=== PATIENT | male | born 1995 | race Caucasian/White ===

== ENCOUNTER 2017-03-06 19:24 | Emergency (ER) | payer SELFPAY ==
[2017-03-06] MEDS ORDERED: Diphtheria,Pertussis(Acell),Tetanus Vaccine 0.5 ML Syringe IM ONE (19:35)
[2017-03-06] MEDS ORDERED: Bupivacaine 0.5% 10 ML SDV ONE (19:51)
--- NOTE | 2017-03-06 20:02 | EDM.PDOC ---
ED HPI GENERAL MEDICAL PROBLEM - General Chief Complaint: Lower Extremity Injury/Pain Stated Complaint: CRUSHED TOES AT WORK Time Seen by Provider: 03/06/17 19:39 - History of Present Illness INITIAL COMMENTS - FREE TEXT/NARRATIVE: HISTORY AND PHYSICAL: History of present illness: Patient 21-year-old white male presents with concern of acute injury to his right foot informal blunt force trauma with he dropped a transmission on his foot sustaining a avulsion injury to the fourth digit and a lesser injury to the fifth digit his tetanus status is to be determined as no other trauma or concern Review of systems: As per history of present illness and below otherwise all systems reviewed and negative. Past medical history: As per history of present illness and as reviewed below otherwise noncontributory. Surgical history: As per history of present illness and as reviewed below otherwise noncontributory. Social history: No reported history of drug or alcohol abuse. Family history: As per history of present illness and as reviewed below otherwise noncontributory. Physical exam: HEENT: Atraumatic, normocephalic, pupils reactive, negative for conjunctival pallor or scleral icterus, mucous membranes moist, throat clear, neck supple, nontender, trachea midline. Lungs: Clear to auscultation, breath sounds equal bilaterally, chest nontender. Heart: S1S2, regular, negative for clicks, rubs, or JVD. Abdomen: Soft, nondistended, nontender. Negative for masses or hepatosplenomegaly. Negative for costovertebral tenderness. Pelvis: Stable nontender. Genitourinary: Deferred. Rectal: Deferred. Extremities: Patient noted to have abrasion and avulsion injury of the fourth and fifth digits the abrasions primarily the fifth digit the fourth digit has loss of nail with tissue avulsion and a small laceration approximately 1 cm on the medial aspect seen best neurovascular exam somewhat limited but grossly unremarkable. Neuro: Awake, alert, oriented. Cranial nerves II through XII unremarkable. Cerebellum unremarkable. Motor and sensory unremarkable throughout. Exam nonfocal. Diagnostics: X-ray right foot Therapeutics: Patient was anesthetized with 0.5% Marcaine irrigated with copious amounts 0.9 normal saline his 1 cm laceration was closed with 50 absorbable suture bulky dressing was applied Impression: [#1 acute injury right foot (blunt force trauma with laceration/abrasion/ avulsion) Definitive disposition and diagnosis as appropriate pending reevaluation and review of above. Right Feet Pain Score (Numeric/FACES): 10 - Related Data Allergies Allergy/AdvReac Type Severity Reaction Status Date / Time No Known Allergies Allergy Verified 03/06/17 19:30 Home Meds: Home Meds . [No Known Home Meds] 03/06/17 [History] Review of Systems - Review of Systems Review Of Systems: ROS reveals no pertinent complaints other than HPI. ED EXAM, GENERAL - Physical Exam Exam: See Below (See dictation) Course - Vital Signs Last Recorded V/S: Last Vital Signs Temp 36.8 C 03/06/17 19:36 Pulse 106 H 03/06/17 19:36 Resp 30 H 03/06/17 19:36 BP 146/94 H 03/06/17 19:36 Pulse Ox 100 03/06/17 19:36 - Orders/Labs/Meds Orders: Active Orders 24 hr Category Date Time Status Vaccines to be Administered [RC] PER UNIT ROUTINE Care 03/06/17 19:35 Active Foot Comp Min 3V Rt [CR] Stat Exams 03/06/17 19:30 Taken Meds: Medications Discontinued Medications Generic Name Dose Route Start Last Admin Trade Name Freq PRN Reason Stop Dose Admin Bacitracin 1 dose 03/06/17 20:54 Bacitracin Oint 1 Gm TOP 03/06/17 20:55 ONETIME ONE Bupivacaine HCl Confirm 03/06/17 19:51 03/06/17 20:12 Sensorcaine-Mpf 0.5% Administered 03/06/17 19:52 10 ml Dose Administration 10 ml .ROUTE .STK-MED ONE Diphtheria/Tetanus/Acell Pertussis 0.5 ml 03/06/17 19:35 03/06/17 20:11 Adacel IM 03/06/17 19:36 0.5 ml .ONCE ONE Administration Departure - Departure Time of Disposition: 20:02 Disposition: Home, Self-Care 01 Condition: Good Clinical Impression: Foot injury - Discharge Information Referrals: PCP,None [Primary Care Provider] - Forms: ED Department Discharge Additional Instructions: The following information is given to patients seen in the emergency department who are being discharged to home. This information is to outline your options for follow-up care. We provide all patients seen in our emergency department with a follow-up referral. The need for follow-up, as well as the timing and circumstances, are variable depending upon the specifics of your emergency department visit. If you don't have a primary care physician on staff, we will provide you with a referral. We always advise you to contact your personal physician following an emergency department visit to inform them of the circumstance of the visit and for follow-up with them and/or the need for any referrals to a consulting specialist. The emergency department will also refer you to a specialist when appropriate. This referral assures that you have the opportunity for followup care with a specialist. All of these measure are taken in an effort to provide you with optimal care, which includes your followup. Under all circumstances we always encourage you to contact your private physician who remains a resource for coordinating your care. When calling for followup care, please make the office aware that this follow-up is from your recent emergency room visit. If for any reason you are refused follow-up, please contact the [facility] emergency department at and asked to speak to the emergency department charge nurse. Dr TERAN Hydrocodone Keflex as prescribed follow-up podiatry as referred wound check 24- 48 hours return as needed as discussed - My Orders Last 24 Hours: My Active Orders 03/06/17 19:35 Vaccines to be Administered [RC] PER UNIT ROUTINE - Assessment/Plan Last 24 Hours: My Active Orders 03/06/17 19:35 Vaccines to be Administered [RC] PER UNIT ROUTINE
[2017-03-06] MEDS ORDERED: Bacitracin Oint 1 GM U/D Packet TOP ONE (20:54)
[2017-03-07 00:51] VITALS: BP 134/84
--- NOTE | 2017-03-07 13:36 | CR ---
EXAM DATE: 03/06/17 PATIENT'S AGE: 21 Patient: SHIV DELORES Facility: [place], [place] Site . Site : 1995 Study: XRay Extremity Right FOOT [id number] 8:41:02 PM Ordering Physician: Doctor Peterson Final Report: HISTORY: Crush injury right foot. Technique: Right foot 3 views. Comparison: None. Findings: Comminuted mildly displaced fracture of the tuft of the 4th toe distal phalanx. Comminuted intra-articular fracture of the 5th toe distal phalanx with disruption of the articular surface. No other acute fracture. Joint spaces are otherwise maintained. Chronic linear lucency in the lateral aspect of the 3rd toe distal phalanx. No radiopaque foreign body. Impression: Comminuted fractures of the distal phalanges of the 4th and 5th toes. Dictated by Shiv Coburn MD @ Mar 06 2017 9:03PM (Electronic Signature) Report Signed by Proxy. JOSE
== END 2017-03-06 21:15 | disposition home or self-care (01) ==
LOC: MW.ED 19:24
DX: S91.214A Laceration without foreign body of right lesser toe(s) with damage to nail, initial encounter (principal); S90.414A Abrasion, right lesser toe(s), initial encounter; W20.8XXA Other cause of strike by thrown, projected or falling object, initial encounter; Y99.0 Civilian activity done for income or pay; Z23 Encounter for immunization
CPT/HCPCS: 12001; 73630-26-RT; 73630-RT; 90471; 90715; 99282; 99283-25

== ENCOUNTER 2017-03-08 22:34 | Emergency (ER) | payer SELFPAY ==
[2017-03-08] MEDS ORDERED: Bacitracin Oint 1 GM U/D Packet TOP ONE (23:18)
[2017-03-08] MEDS ORDERED: Sulfamethoxazole/Trimethoprim 800-160 MG Tab PO ONE (23:20)
--- NOTE | 2017-03-08 23:20 | EDM.PDOC ---
ED HPI GENERAL MEDICAL PROBLEM - General Chief Complaint: Wound Recheck Stated Complaint: STITCHES FELL OF RT TOE Time Seen by Provider: 03/08/17 23:05 Source of Information: Reports: Patient, Family, Old Records, RN - History of Present Illness INITIAL COMMENTS - FREE TEXT/NARRATIVE: He is here for a wound recheck. He suffered a crush injury to tips of toes 4 and 5 right foot two days ago. Right Feet Pain Score (Numeric/FACES): 4 - Related Data Allergies Allergy/AdvReac Type Severity Reaction Status Date / Time No Known Allergies Allergy Verified 03/08/17 22:51 Home Meds: Home Meds Cephalexin [Keflex] 500 mg PO QID 03/08/17 [History] Hydrocodone/Acetaminophen [Hydrocodon-Acetaminophen 5-325] 1 tab PO TID PRN [History] Past Medical History - Past Health History Medical/Surgical History: Denies Medical/Surgical History HEENT History: Reports: Impaired Vision - Past Surgical History Musculoskeletal Surgical History: Reports: Other (See Below) Other Musculoskeletal Surgeries/Procedures:: arm surgery Social & Family History - Family History Family Medical History: Noncontributory - Tobacco Use Smoking Status *Q: Current Every Day Smoker Years of Tobacco use: 9 Packs/Tins Daily: 1 - Caffeine Use Caffeine Use: Reports: Coffee, Energy Drinks, Soda - Recreational Drug Use Recreational Drug Use: Yes Drug Use in Last 12 Months: Yes Recreational Drug Type: Reports: Marijuana/Hashish Recreational Drug Use Frequency: Daily ED ROS GENERAL - Review of Systems Review Of Systems: See Below (no other complaint; he has been trying to walk and go to work.) ED EXAM, SKIN/RASH Exam: See Below Text/Narrative:: alert marked swelling and abraded areas of toes 4 and 5 right foot. Xrays reviewed. tips of toes warm and pink Course - Vital Signs Last Recorded V/S: Last Vital Signs Temp 98.5 F 03/08/17 22:47 Pulse 84 03/08/17 22:47 Resp 20 03/08/17 22:47 BP 122/69 03/08/17 22:47 Pulse Ox 100 03/08/17 22:47 Departure - Departure Time of Disposition: 23:16 Disposition: Home, Self-Care 01 Condition: Fair Clinical Impression: Foot injury - Discharge Information Referrals: PCP,None [Primary Care Provider] - Additional Instructions: I emphasized my recommendation for podiatry follow up particularly with intraarticular fracture noted. I advised that I am worried about future malignment and chronic toe pain. I advised that I am not certain that the distal fifth toes is lined up properly. He states that he will not see podiatry. crutches minimal partial weight bearing for balance add bactrim DS bid x 7 days stop bactrim and see a doctor if rash, sores in eyes, mouth or genitals develop
[2017-03-08 23:57] VITALS: BP 131/86
== END 2017-03-08 23:45 | disposition home or self-care (01) ==
LOC: MW.ED 22:34
DX: S97.121D Crushing injury of right lesser toe(s), subsequent encounter (principal); I10 Essential (primary) hypertension; F17.210 Nicotine dependence, cigarettes, uncomplicated; X58.XXXD Exposure to other specified factors, subsequent encounter; Z98.890 Other specified postprocedural states
CPT/HCPCS: 99283; A9270; 99281

== ENCOUNTER 2018-02-08 19:39 | Emergency (ER) | payer SELFPAY ==
[2018-02-08] MEDS ORDERED: Benzocaine 20% Topical Spray UD MUCMEM ONE (19:54)
[2018-02-08] MEDS ORDERED: Lidocaine 2% Viscous Solution 15 ML Cup PO ONE (19:54)
--- NOTE | 2018-02-08 19:57 | EDM.PDOC ---
ED HPI GENERAL MEDICAL PROBLEM - General Chief Complaint: ENT Problem Stated Complaint: RT SIDE JAW BLEEDING Time Seen by Provider: 02/08/18 19:50 Source of Information: Reports: Patient History Limitations: Reports: No Limitations - History of Present Illness INITIAL COMMENTS - FREE TEXT/NARRATIVE: HISTORY AND PHYSICAL: History of present illness: Patient is a 22-year-old male here with complaint of bleeding in his mouth for the last week. The bleeding has slowed down but he'll occasionally spit out a little bit of blood. He stated having a lot of pain on the right side of his mouth and is rating to his right ear. He denies any fevers or chills Review of systems: As per history of present illness and below otherwise all systems reviewed and negative. Past medical history: As per history of present illness and as reviewed below otherwise noncontributory. Surgical history: As per history of present illness and as reviewed below otherwise noncontributory. Social history: No reported history of drug or alcohol abuse. Family history: As per history of present illness and as reviewed below otherwise noncontributory. Physical exam: General: Patient sitting comfortably in no acute distress and nontoxic appearing HEENT: Patient has some erosion of the 2nd left lower molar. The surrounding gums are erythematous. There is a cut on the adjacent cheek that appears to have been bleeding. Atraumatic, normocephalic, pupils reactive, negative for conjunctival pallor or scleral icterus, mucous membranes moist, throat clear, neck supple, nontender, trachea midline. No meningeal signs. Lungs: Clear to auscultation, breath sounds equal bilaterally, chest nontender. Heart: S1S2, regular, negative for clicks, rubs, or overt murmur. Abdomen: Soft, nondistended, nontender. Negative for masses or hepatosplenomegaly. Negative for costovertebral tenderness. Pelvis: Stable nontender. Genitourinary: Deferred. Rectal: Deferred. Extremities: Atraumatic, negative for cords or calf pain. Neurovascular unremarkable. Neuro: Awake, alert, oriented. Cranial nerves II through XII unremarkable. Cerebellum unremarkable. Motor and sensory unremarkable throughout. Exam nonfocal. Notes: Diagnostics: None Therapeutics: Dental balls Prescriptions: Penicillin Impression: Dental infection Plan: 1. Take antibiotic and is dental balls as directed. Alternate Tylenol or Motrin as needed for pain. 2. Follow-up with dentist for definitive treatment 3. Return to ED as needed as discussed Definitive disposition and diagnosis as appropriate pending reevaluation and review of above. mouth Pain Score (Numeric/FACES): 8 - Related Data Allergies Allergy/AdvReac Type Severity Reaction Status Date / Time No Known Allergies Allergy Verified 02/08/18 19:46 Home Meds: Home Meds Penicillin V Potassium [Veetids] 500 mg PO TID #30 tab 02/08/18 [Rx] Past Medical History - Past Health History Medical/Surgical History: Denies Medical/Surgical History HEENT History: Reports: Impaired Vision Musculoskeletal History: Reports: Other (See Below) Other Musculoskeletal History: dislocated left arm - Past Surgical History Musculoskeletal Surgical History: Reports: None Social & Family History - Family History Family Medical History: Noncontributory - Tobacco Use Smoking Status *Q: Current Every Day Smoker Years of Tobacco use: 5 Packs/Tins Daily: 0.1 - Caffeine Use Caffeine Use: Reports: Coffee, Energy Drinks, Soda - Recreational Drug Use Recreational Drug Use: Yes Recreational Drug Type: Reports: Marijuana/Hashish Recreational Drug Last Use: "4 months ago" ED ROS ENT - Review of Systems Review Of Systems: ROS reveals no pertinent complaints other than HPI. ED EXAM, ENT - Physical Exam Exam: See Below (See dictation) Course - Vital Signs Last Recorded V/S: Last Vital Signs Temp 36.6 C 02/08/18 19:43 Pulse 90 02/08/18 19:43 Resp 18 02/08/18 19:43 BP 114/70 02/08/18 19:43 Pulse Ox 99 02/08/18 19:43 - Orders/Labs/Meds Meds: Medications Discontinued Medications Generic Name Dose Route Start Last Admin Trade Name Freq PRN Reason Stop Dose Admin Benzocaine 2 each 02/08/18 19:54 02/08/18 20:00 Hurricaine One 20% MUCMEM 02/08/18 19:55 2 each ONETIME ONE Administration Lidocaine HCl 15 ml 02/08/18 19:54 02/08/18 20:00 Xylocaine 2% Viscous PO 02/08/18 19:55 15 ml ONETIME ONE Administration Departure - Departure Time of Disposition: 20:03 Disposition: Home, Self-Care 01 Condition: Good Clinical Impression: Dental infection, Abrasion of buccal mucosa - Discharge Information Prescriptions: Penicillin V Potassium [Veetids] 500 mg PO TID #30 tab Forms: ED Department Discharge, ED Summary Discharge Additional Instructions: The following information is given to patients seen in the emergency department who are being discharged to home. This information is to outline your options for follow-up care. We provide all patients seen in our emergency department with a follow-up referral. The need for follow-up, as well as the timing and circumstances, are variable depending upon the specifics of your emergency department visit. If you don't have a primary care physician on staff, we will provide you with a referral. We always advise you to contact your personal physician following an emergency department visit to inform them of the circumstance of the visit and for follow-up with them and/or the need for any referrals to a consulting specialist. The emergency department will also refer you to a specialist when appropriate. This referral assures that you have the opportunity for follow-up care with a specialist. All of these measure are taken in an effort to provide you with optimal care, which includes your follow-up. Under all circumstances we always encourage you to contact your private physician who remains a resource for coordinating your care. When calling for follow-up care, please make the office aware that this follow-up is from your recent emergency room visit. If for any reason you are refused follow-up, please contact the [facility] Emergency Department at and asked to speak to the emergency department charge nurse. 1. Take antibiotic and is dental balls as directed. Alternate Tylenol or Motrin as needed for pain. 2. Follow-up with dentist for definitive treatment 3. Return to ED as needed as discussed
[2018-02-08 20:19] VITALS: BP 132/75
== END 2018-02-08 20:18 | disposition home or self-care (01) ==
LOC: MW.ED 19:39
DX: K04.7 Periapical abscess without sinus (principal); S00.512A Abrasion of oral cavity, initial encounter; F17.210 Nicotine dependence, cigarettes, uncomplicated; X58.XXXA Exposure to other specified factors, initial encounter
CPT/HCPCS: 99282; A9270

== ENCOUNTER 2018-02-17 17:12 | Emergency (ER) | payer BC ==
[2018-02-17 17:26] VITALS: BP 153/66
--- NOTE | 2018-02-17 17:28 | EDM.PDOC ---
ED HPI GENERAL MEDICAL PROBLEM - General Chief Complaint: Skin Complaint Stated Complaint: PT HAS SORE ON TONGUE Time Seen by Provider: 02/17/18 17:17 - History of Present Illness INITIAL COMMENTS - FREE TEXT/NARRATIVE: HISTORY AND PHYSICAL: History of present illness: Patient is a 22-year-old male presents with concern of toothache and a ulcer to his right tongue. It's been worse over last several days denies fever chills nausea vomiting or other complaints Review of systems: As per history of present illness and below otherwise all systems reviewed and negative. Past medical history: As per history of present illness and as reviewed below otherwise noncontributory. Surgical history: As per history of present illness and as reviewed below otherwise noncontributory. Social history: No reported history of drug or alcohol abuse. Family history: As per history of present illness and as reviewed below otherwise noncontributory. Physical exam: HEENT: Patient is noted to have approximately 1.5 cm circumferential at this ulcer to his right lateral tongue. normocephalic, pupils reactive, negative for conjunctival pallor or scleral icterus, mucous membranes moist, throat clear, neck supple, nontender, trachea midline. He is also known to have some gingival swelling around region of the right lower molars Lungs: Clear to auscultation, breath sounds equal bilaterally, chest nontender. Heart: S1S2, regular, negative for clicks, rubs, or JVD. Abdomen: Soft, nondistended, nontender. Negative for masses or hepatosplenomegaly. Negative for costovertebral tenderness. Pelvis: Stable nontender. Genitourinary: Deferred. Rectal: Deferred. Extremities: Atraumatic, negative for cords or calf pain. Neurovascular unremarkable. Neuro: Awake, alert, oriented. Cranial nerves II through XII unremarkable. Cerebellum unremarkable. Motor and sensory unremarkable throughout. Exam nonfocal. Diagnostics: None Therapeutics: None Impression: #1 dentalgia #2 dental abscess #3 aphthous ulcer Definitive disposition and diagnosis as appropriate pending reevaluation and review of above. - Related Data Allergies Allergy/AdvReac Type Severity Reaction Status Date / Time No Known Allergies Allergy Verified 02/08/18 19:46 Home Meds: Home Meds Penicillin V Potassium [Veetids] 500 mg PO TID #30 tab 02/08/18 [Rx] Past Medical History - Past Health History Medical/Surgical History: Denies Medical/Surgical History HEENT History: Reports: Impaired Vision Musculoskeletal History: Reports: Other (See Below) Other Musculoskeletal History: dislocated left arm - Past Surgical History Musculoskeletal Surgical History: Reports: None Social & Family History - Family History Family Medical History: Noncontributory - Caffeine Use Caffeine Use: Reports: Coffee, Energy Drinks, Soda ED ROS GENERAL - Review of Systems Review Of Systems: ROS reveals no pertinent complaints other than HPI. ED EXAM, SKIN/RASH Exam: See Below (See dictation) Departure - Departure Time of Disposition: 17:27 Disposition: Home, Self-Care 01 Condition: Good Clinical Impression: Dentalgia, Dental abscess, Aphthous ulcer of tongue - Discharge Information *PRESCRIPTION DRUG MONITORING PROGRAM REVIEWED*: Not Applicable *COPY OF PRESCRIPTION DRUG MONITORING REPORT IN PATIENT ADILENE: Not Applicable Additional Instructions: The following information is given to patients seen in the emergency department who are being discharged to home. This information is to outline your options for follow-up care. We provide all patients seen in our emergency department with a follow-up referral. The need for follow-up, as well as the timing and circumstances, are variable depending upon the specifics of your emergency department visit. If you don't have a primary care physician on staff, we will provide you with a referral. We always advise you to contact your personal physician following an emergency department visit to inform them of the circumstance of the visit and for follow-up with them and/or the need for any referrals to a consulting specialist. The emergency department will also refer you to a specialist when appropriate. This referral assures that you have the opportunity for followup care with a specialist. All of these measure are taken in an effort to provide you with optimal care, which includes your followup. Under all circumstances we always encourage you to contact your private physician who remains a resource for coordinating your care. When calling for followup care, please make the office aware that this follow-up is from your recent emergency room visit. If for any reason you are refused follow-up, please contact the [facility] emergency department at and asked to speak to the emergency department charge nurse. Chemo Perry as prescribed follow-up dentist as discussed return as needed as discussed
== END 2018-02-17 17:36 | disposition home or self-care (01) ==
LOC: MW.ED 17:12
DX: K04.7 Periapical abscess without sinus (principal); K12.0 Recurrent oral aphthae
CPT/HCPCS: 99282

== ENCOUNTER 2018-12-12 17:32 | Emergency (ER) | payer BC, OTHER ==
[2018-12-12 18:05] VITALS: BP 148/79
--- NOTE | 2018-12-12 19:38 | EDM.PDOC ---
ED HPI GENERAL MEDICAL PROBLEM - General Chief Complaint: Lower Extremity Injury/Pain Stated Complaint: HURT FOOT Time Seen by Provider: 12/12/18 19:14 - History of Present Illness INITIAL COMMENTS - FREE TEXT/NARRATIVE: HISTORY AND PHYSICAL: History of present illness: Patient is a 23-year-old white male presents with concern of possible occult left foot injury he noted what appears to be abrasions over the dorsal aspect of his left foot primarily his second third and fourth digits as well as an area behind his lateral posterior malleolus region. 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 Review of systems: As per history of present illness and below otherwise all systems reviewed and negative. Past medical history: As per history of present illness and as reviewed below otherwise noncontributory. Surgical history: As per history of present illness and as reviewed below otherwise noncontributory. Social history: No reported history of drug or alcohol abuse. Family history: As per history of present illness and as reviewed below otherwise noncontributory. Physical exam: HEENT: Atraumatic, normocephalic, pupils reactive, negative for conjunctival pallor or scleral icterus, mucous membranes moist, throat clear, neck supple, nontender, trachea midline. Lungs: Clear to auscultation, breath sounds equal bilaterally, chest nontender. Heart: S1S2, regular, negative for clicks, rubs, or JVD. Abdomen: Soft, nondistended, nontender. Negative for masses or hepatosplenomegaly. Negative for costovertebral tenderness. Pelvis: Stable nontender. Genitourinary: Deferred. Rectal: Deferred. Extremities: Atraumatic, negative for cords or calf pain. Neurovascular unremarkable. Neuro: Awake, alert, oriented. Cranial nerves II through XII unremarkable. Cerebellum unremarkable. Motor and sensory unremarkable throughout. Exam nonfocal. Diagnostics: X-ray left foot/ankle Therapeutics: None Impression: #1 left foot/ankle abrasion probable occult injury Definitive disposition and diagnosis as appropriate pending reevaluation and review of above. Left Foot Pain Score (Numeric/FACES): 6 - Related Data Allergies Allergy/AdvReac Type Severity Reaction Status Date / Time No Known Allergies Allergy Verified 12/12/18 17:54 Home Meds: Home Meds . [No Known Home Meds] 02/17/18 [History] Past Medical History - Past Health History Medical/Surgical History: Denies Medical/Surgical History HEENT History: Reports: Impaired Vision Musculoskeletal History: Reports: Fracture, Other (See Below) Other Musculoskeletal History: dislocated left arm - Infectious Disease History Infectious Disease History: Reports: None - Past Surgical History Musculoskeletal Surgical History: Reports: None Social & Family History - Family History Family Medical History: Noncontributory - Tobacco Use Smoking Status *Q: Current Every Day Smoker Years of Tobacco use: 10 Packs/Tins Daily: 1 - Caffeine Use Caffeine Use: Reports: None - Recreational Drug Use Recreational Drug Use: Yes Recreational Drug Type: Reports: Marijuana/Hashish Review of Systems - Review of Systems Review Of Systems: ROS reveals no pertinent complaints other than HPI. ED EXAM, GENERAL - Physical Exam Exam: See Below (See dictation) Course - Vital Signs Last Recorded V/S: Last Vital Signs Temp 36.5 C 12/12/18 17:55 Pulse 87 12/12/18 17:55 Resp 16 12/12/18 17:55 BP 148/79 H 12/12/18 17:55 Pulse Ox 97 12/12/18 17:55 - Orders/Labs/Meds Orders: Active Orders 24 hr Category Date Time Status Ankle Min 3V Lt [CR] Stat Exams 12/12/18 19:18 Ordered Foot 2V Lt [CR] Stat Exams 12/12/18 19:18 Ordered Departure - Departure Time of Disposition: 19:37 Disposition: Home, Self-Care 01 Condition: Good Clinical Impression: Abrasions of multiple sites - Discharge Information Referrals: PCP,None [Primary Care Provider] - Additional Instructions: The following information is given to patients seen in the emergency department who are being discharged to home. This information is to outline your options for follow-up care. We provide all patients seen in our emergency department with a follow-up referral. The need for follow-up, as well as the timing and circumstances, are variable depending upon the specifics of your emergency department visit. If you don't have a primary care physician on staff, we will provide you with a referral. We always advise you to contact your personal physician following an emergency department visit to inform them of the circumstance of the visit and for follow-up with them and/or the need for any referrals to a consulting specialist. The emergency department will also refer you to a specialist when appropriate. This referral assures that you have the opportunity for followup care with a specialist. All of these measure are taken in an effort to provide you with optimal care, which includes your followup. Under all circumstances we always encourage you to contact your private physician who remains a resource for coordinating your care. When calling for followup care, please make the office aware that this follow-up is from your recent emergency room visit. If for any reason you are refused follow-up, please contact the [facility] emergency department at and asked to speak to the emergency department charge nurse. Avoid boots or other possible contributing agents causing mechanical contact with area of involved areas follow-up private medical doctor bacitracin as discussed Motrin/Tylenol as directed return as needed as discussed - My Orders Last 24 Hours: My Active Orders 12/12/18 19:18 Ankle Min 3V Lt [CR] Stat Foot 2V Lt [CR] Stat - Assessment/Plan Last 24 Hours: My Active Orders 12/12/18 19:18 Ankle Min 3V Lt [CR] Stat Foot 2V Lt [CR] Stat
--- NOTE | 2018-12-12 20:00 | CR ---
Indication: Pain Technique: Three views left ankle Comparison: None Findings: Bones: Alignment is normal. No fractures or bone lesions. Joint spaces: Unremarkable. Soft tissues: Unremarkable. Impression: Negative. Dictated by Yvonne Hernandez MD @ Dec 12 2018 7:58PM Signed by Dr. Yvonne Hernandez @ Dec 12 2018 7:58PM
--- NOTE | 2018-12-12 20:00 | CR ---
Indication: Pain Technique: Two views left foot Comparison: None Findings: Bones: Alignment is normal. No fractures or bone lesions. Joint spaces: Unremarkable. Soft tissues: Unremarkable. Impression: Negative. Dictated by Yvonne Hernandez MD @ Dec 12 2018 7:58PM Signed by Dr. Yvonne Hernandez @ Dec 12 2018 7:59PM
== END 2018-12-12 20:54 | disposition home or self-care (01) ==
LOC: MW.ED 17:32
DX: S90.812A Abrasion, left foot, initial encounter (principal); S90.512A Abrasion, left ankle, initial encounter; F17.210 Nicotine dependence, cigarettes, uncomplicated; X58.XXXA Exposure to other specified factors, initial encounter
CPT/HCPCS: 73610-26-LT; 73610-LT; 73620-26-LT; 73620-LT; 99282; 99283-25

== ENCOUNTER 2019-04-27 17:55 | Emergency (ER) | payer OTHER ==
[2019-04-27] MEDS ORDERED: Ibuprofen 800 MG Tab PO ONE (18:13)
--- NOTE | 2019-04-27 18:17 | EDM.PDOC ---
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 He did not complain of pain initially but gradually worsened over the past hour. He denies any other injuries. Review of systems: As per history of present illness and below otherwise all systems reviewed and negative. Past medical history: As per history of present illness and as reviewed below otherwise noncontributory. Surgical history: As per history of present illness and as reviewed below otherwise noncontributory. Social history: No reported history of drug or alcohol abuse. Family history: As per history of present illness and as reviewed below otherwise noncontributory. Physical exam: General: Well developed, well nourished in NAD HEENT: Atraumatic, normocephalic, pupils reactive, negative for conjunctival pallor or scleral icterus, mucous membranes moist, throat clear, neck supple, nontender, trachea midline. Lungs: Clear to auscultation, breath sounds equal bilaterally, chest nontender. Heart: S1S2, regular, negative for clicks, rubs, or JVD. Abdomen: NABS, Soft, nondistended, nontender. Negative for masses or hepatosplenomegaly. Negative for costovertebral tenderness. Pelvis: Stable nontender. Genitourinary: Deferred. Rectal: Deferred. Extremities: Right thumb with swelling and tenderness no gross deformity, negative for cords or calf pain. Neurovascular unremarkable. Neuro: Awake, alert, oriented. Cranial nerves II through XII unremarkable. Cerebellum unremarkable. Motor and sensory unremarkable throughout. Exam nonfocal. Skin:warm and dry Diagnostics: X-ray right thumb Therapeutics: Ibuprofen ED Course: Stable Impression: Prescriptions: Plan: Definitive disposition and diagnosis as appropriate pending reevaluation and review of above. Right Finger-Thumb Pain Score (Numeric/FACES): 8 - Related Data Allergies Allergy/AdvReac Type Severity Reaction Status Date / Time No Known Allergies Allergy Verified 04/27/19 18:11 Home Meds: Home Meds traMADol HCl [Tramadol HCl] 50 mg PO Q6H PRN #16 tablet 04/27/19 [Rx] Past Medical History - Past Health History Medical/Surgical History: Denies Medical/Surgical History HEENT History: Reports: Impaired Vision Musculoskeletal History: Reports: Fracture, Other (See Below) Other Musculoskeletal History: dislocated left arm - Infectious Disease History Infectious Disease History: Reports: None - Past Surgical History Musculoskeletal Surgical History: Reports: None Social & Family History - Family History Family Medical History: Noncontributory - Caffeine Use Caffeine Use: Reports: None Review of Systems - Review of Systems Review Of Systems: See Below ED EXAM, GENERAL - Physical Exam Exam: See Below Course - Vital Signs Last Recorded V/S: Last Vital Signs Temp 98.4 F 04/27/19 18:09 Pulse 83 04/27/19 18:09 Resp 18 04/27/19 18:09 BP 115/74 04/27/19 18:09 Pulse Ox 98 04/27/19 18:09 - Orders/Labs/Meds Orders: Active Orders 24 hr Category Date Time Status Splinting [RC] ASDIRECTED Care 04/27/19 18:38 Active Meds: Medications Discontinued Medications Generic Name Dose Route Start Last Admin Trade Name Freq PRN Reason Stop Dose Admin Ibuprofen 800 mg 04/27/19 18:13 04/27/19 18:23 Motrin PO 04/27/19 18:14 800 mg ONETIME ONE Administration Departure - Departure Time of Disposition: 18:52 Disposition: Home, Self-Care 01 Condition: Good Clinical Impression: Fracture of distal phalanx of left thumb Qualifiers: Encounter type: initial encounter Fracture type: closed Fracture alignment: nondisplaced Qualified Code(s): S62.525A - Nondisplaced fracture of distal phalanx of left thumb, initial encounter for closed fracture - Discharge Information *PRESCRIPTION DRUG MONITORING PROGRAM REVIEWED*: Not Applicable *COPY OF PRESCRIPTION DRUG MONITORING REPORT IN PATIENT [place]ILENE: Not Applicable Prescriptions: traMADol HCl [Tramadol HCl] 50 mg PO Q6H PRN #16 tablet PRN Reason: Pain Referrals: PCP,Not In Area [Primary Care Provider] - Forms: ED Department Discharge Additional Instructions: The following information is given to patients seen in the emergency department who are being discharged to home. This information is to outline your options for follow-up care. We provide all patients seen in our emergency department with a follow-up referral. The need for follow-up, as well as the timing and circumstances, are variable depending upon the specifics of your emergency department visit. If you don't have a primary care physician on staff, we will provide you with a referral. We always advise you to contact your personal physician following an emergency department visit to inform them of the circumstance of the visit and for follow-up with them and/or the need for any referrals to a consulting specialist. The emergency department will also refer you to a specialist when appropriate. This referral assures that you have the opportunity for follow-up care with a specialist. All of these measure are taken in an effort to provide you with optimal care, which includes your follow-up. Under all circumstances we always encourage you to contact your private physician who remains a resource for coordinating your care. When calling for follow-up care, please make the office aware that this follow-up is from your recent emergency room visit. If for any reason you are refused follow-up, please contact the [facility] Emergency Department at and asked to speak to the emergency department charge nurse. Take meds as directed, follow up with your primary care physician, return to ER if symptoms worsen or change. [facility] - [facility] Professional Building [address] [place] [address], [address] [place] [address] - My Orders Last 24 Hours: My Active Orders 04/27/19 18:38 Splinting [RC] ASDIRECTED - Assessment/Plan Last 24 Hours: My Active Orders 04/27/19 18:38 Splinting [RC] ASDIRECTED
--- NOTE | 2019-04-27 18:35 | CR ---
Indication: Patient crushed thumb today. Technique: Three views of the right thumb were obtained. Comparison: None Findings: A comminuted fracture of the distal phalanx of the right thumb is identified. This does extend to the interphalangeal joint space. No other fractures are identified. Impression: Comminuted fracture of the distal phalanx of the right thumb Dictated by Jasmyn Castillo MD @ Apr 27 2019 6:32PM Signed by Dr. Jasmyn Castillo @ Apr 27 2019 6:33PM
[2019-04-27 19:07] VITALS: BP 120/77; PULSE 78
== END 2019-04-27 19:00 | disposition home or self-care (01) ==
LOC: MW.ED 17:55
DX: S62.525A Nondisplaced fracture of distal phalanx of left thumb, initial encounter for closed fracture (principal); W23.0XXA Caught, crushed, jammed, or pinched between moving objects, initial encounter; Y99.0 Civilian activity done for income or pay
CPT/HCPCS: 73140; 99283; A9270

== ENCOUNTER 2022-06-29 05:17 | Emergency (ER) | payer OTHER ==
[2022-06-29] MEDS ORDERED: Acetaminophen/HYDROcodone 325-5 MG Tab PO ONE (05:42)
[2022-06-29] MEDS ORDERED: Bupivacaine 0.5% 10 ML SDV INJECT ONE (05:48)
[2022-06-29] MEDS ORDERED: Diphtheria,Pertussis(Acell),Tetanus Vaccine 0.5 ML Syringe IM ONE (06:12)
[2022-06-29] MEDS ORDERED: ceFAZolin 2 GM in Sodium Chloride 0.9% 50 ML IV ONE (06:32)
[2022-06-29] MEDS ORDERED: Sodium Chloride 0.9% 50 ML ONE (06:37)
[2022-06-29] MEDS ORDERED: ceFAZolin 2 GM Vial ONE (06:37)
[2022-06-29 06:48] VITALS: BP 134/85; PULSE 71
== END 2022-06-29 07:06 ==
LOC: MW.ED 05:17
DX: S62.615B Displaced fracture of proximal phalanx of left ring finger, initial encounter for open fracture (principal); Z23 Encounter for immunization; W23.1XXA Caught, crushed, jammed, or pinched between stationary objects, initial encounter
CPT/HCPCS: 29125; 73140; 90471; 90715; 96365; 99284; A9270; J0690; J3490